=== PATIENT | female | born 1995 | race Caucasian/White ===

== ENCOUNTER 2017-12-26 23:36 | Emergency (ER) | payer OTHER ==
[~2017-12-26] VITALS: Ht 165.1 cm; Wt 60.3 kg
[2017-12-27] VITALS: BP 131/85
[2017-12-27] MEDS ORDERED: FLUORESCEIN SODIUM OPHTH 1 EA STRIP ONE (00:08)
[2017-12-27] MEDS ORDERED: TETRACAINE HCL/PF 0.5% UD 2 ML BOTTLE ONE (00:08)
--- NOTE | 2017-12-27 00:46 | NUR ---
HILARIA SYKES APPLIED AND 1 LITER OF NORMAL SALINE INITIATED VIA HILARIA SYKES PER MD AGUILAR,'S ORDERS. PT RESTING COMFORTABLY IN BED WITH FAMILY MEMBERS TAJ
[2017-12-27] MEDS ORDERED: FLUORESCEIN SODIUM OPHTH 1 EA STRIP OP ONE (01:00)
[2017-12-27] MEDS ORDERED: MISCELLANEOUS MED 1 EA EA XX ONE (01:00)
[2017-12-27] MEDS ORDERED: TETRACAINE HCL/PF 0.5% UD 2 ML BOTTLE OP ONE (01:00)
== END 2017-12-27 01:07 | disposition home or self-care (01) ==
LOC: ER 23:41
DX: S05.02XA Injury of conjunctiva and corneal abrasion without foreign body, left eye, initial encounter (principal); Z88.0 Allergy status to penicillin; X58.XXXA Exposure to other specified factors, initial encounter; Y93.89 Activity, other specified; Y92.89 Other specified places as the place of occurrence of the external cause; Y99.8 Other external cause status
CPT/HCPCS: A4606; J7030; Z7610